=== PATIENT | male | born 1990 | race Caucasian/White ===

== ENCOUNTER 2018-10-08 16:39 | Emergency (ER) | payer OTHER ==
[~2018-10-08] VITALS: Ht 170.2 cm; Wt 70.3 kg
[2018-10-08 16:45] VITALS: BP_SYST 136
[2018-10-08] MEDS ORDERED: IBUPROFEN 800 MG TABLET PO ONE (17:00)
[2018-10-08] MEDS ORDERED: BACITRACIN 1 GM OINT TP ONE (17:00)
[2018-10-08] MEDS ORDERED: DIPH-TET-PERTUS Vaccine 0.5 ML VIAL (ADACEL) I.M. ONE (17:00)
[2018-10-08] MEDS ORDERED: LIDOCAINE 1% 10 MG/ML, 20 ML MDV INJ ONE (17:15)
[2018-10-08 19:40] VITALS: BP_SYST 136
== END 2018-10-08 19:40 | disposition home or self-care (01) ==
LOC: SED 16:39
DX: S61.412A Laceration without foreign body of left hand, initial encounter (principal); F17.210 Nicotine dependence, cigarettes, uncomplicated; Z71.6 Tobacco abuse counseling; W31.2XXA Contact with powered woodworking and forming machines, initial encounter; Y93.89 Activity, other specified; Y92.89 Other specified places as the place of occurrence of the external cause; Y99.8 Other external cause status
CPT/HCPCS: 90715; 99284

== ENCOUNTER 2019-10-29 17:27 | Emergency (ER) | payer OTHER ==
[~2019-10-29] VITALS: Ht 172.7 cm; Wt 74.8 kg
[2019-10-29 17:42] VITALS: BP_SYST 104
[2019-10-29] MEDS ORDERED: DIPH-TET-PERTUS Vaccine 0.5 ML VIAL (ADACEL) I.M. ONE (18:15)
[2019-10-29] MEDS ORDERED: LIDOCAINE/EPI 1% 1:100000 20 ML VIAL INJ ONE (19:00)
[2019-10-29] MEDS ORDERED: KETOROLAC TROMETHAMINE 60 MG/2 ML VIAL IM ONE (19:15)
[2019-10-29] MEDS ORDERED: HYDROcodone/ACETAMIN 5-325 MG TAB (NORCO/ VICODIN) PO ONE (19:15)
[2019-10-29 20:48] VITALS: BP_SYST 106
== END 2019-10-29 20:48 | disposition home or self-care (01) ==
LOC: SED 17:27
DX: S42.032A Displaced fracture of lateral end of left clavicle, initial encounter for closed fracture (principal); S01.81XA Laceration without foreign body of other part of head, initial encounter; W18.09XA Striking against other object with subsequent fall, initial encounter; Y93.55 Activity, bike riding; Y92.89 Other specified places as the place of occurrence of the external cause; Y99.8 Other external cause status
CPT/HCPCS: 12002; 12013; 70450; 71045; 73030; 73140; 90471; 90715; 99284; J7030